=== PATIENT | male | born 1965 | race Caucasian/White ===

== ENCOUNTER 2017-11-13 10:19 | Emergency (ER) | payer BC, OTHER ==
[~2017-11-13] VITALS: Ht 185.4 cm; Wt 87.3 kg
[~2017-11-13 10:19] MED LIST: CEPH500C PO; LRT5 PO
[2017-11-13 10:26] VITALS: TEMP 36.7; Ht 185.4 cm; Wt 87.3 kg
[2017-11-13 10:56] VITALS: O2SAT 99
--- NOTE | 2017-11-13 11:01 | DIAGNOSTIC IMAGING REPORT ---
CHEST ONE VIEW PORTABLE CLINICAL HISTORY: CP dyspnea COMPARISON STUDY: No previous studies for comparison. FINDINGS: The bones soft tissues and hemidiaphragms are normal. The cardiomediastinal silhouette is normal. The lungs are clear. The pulmonary vasculature is normal. IMPRESSION: Negative chest. The above report was generated using voice recognition software. It may contain grammatical, syntax or spelling errors. Electronically signed by: Sabino Coronado M.D. 11/13/2017 10:59 AM Dictated Date/Time: 11/13/2017 10:59 AM
[2017-11-13 11:12] LABS: HEMATOCRIT 44.5 % (42-52); HEMOGLOBIN 15.3 g/dL (14.0-18.0); MEAN CELL VOLUME 89.2 fL (80-100); MEAN CORPUSCULAR HEMOGLOBIN 30.7 pg (25-34); MEAN CORPUSCULAR HGB CONC 34.4 g/dl (32-36); MEAN PLATELET VOLUME 10.9 fL (7.4-10.4); PLATELET COUNT 179 K/uL (130-400); RED CELL DISTRIBUTION WIDTH CV 13.9 % (11.5-14.5); RED CELL DISTRIBUTION WIDTH SD 45.4 fL (36.4-46.3); WHITE BLOOD COUNT 5.82 K/uL (4.8-10.8)
[2017-11-13] MEDS ORDERED: ASPI81TA28 PO (11:14)
[2017-11-13] MEDS ORDERED: LOSA50TA54 PO (11:14)
[2017-11-13 11:38] LABS: ALKALINE PHOSPHATASE 95 U/L (45-117); ALT/SGPT 68 U/L (12-78); BLOOD UREA NITROGEN 11 mg/dl (7-18); CALCIUM 8.8 mg/dl (8.5-10.1); CARBON DIOXIDE 21 mmol/L (21-32); CKMB 1.5 ng/ml (0.5-3.6); GLUCOSE 100 mg/dl (70-99); SODIUM 134 mmol/L (136-145); TOTAL PROTEIN 8.3 gm/dl (6.4-8.2)
[2017-11-13 12:17] LABS: PTT PATIENT 25.8 SECONDS (21.0-31.0)
[2017-11-13 12:20] LABS: POTASSIUM 4.3 mmol/L (3.5-5.1)
[2017-11-13 13:39] VITALS: BP 147/79; PULSE 88; O2SAT 97
--- NOTE | 2017-11-13 18:39 | EMERGENCY ROOM VISIT NOTE ---
History First contact with patient: 11:06 Chief Complaint: CHEST PAIN Stated Complaint: CHEST PAIN Nursing Triage Summary: pt reports hands felt tingly numb 2 days ago and chest palpatations started today denies any pain History of Present Illness The patient is a 52 year old male who presents to the Emergency Room with complaints of left-sided chest discomfort, as well as tingling and occasional numbness of his left fourth and fifth fingers. The patient reports that he started to feel a fluttering sensation in his chest possibly 1.5 hours ago. Her chest pressure or pain. The patient reports that his left hand sensation started to bother him approximately 1 week ago. The patient reports that he works on campus with student housing, and admits that they did do a lot of physical labor in preparation for the beginning of fall. He denies any known injury to the neck or left upper extremity. He denies any personal history of cardiopulmonary disease. He has a [id number] smoking history, as well as diagnosis of hypertension. He denies history of hypercholesterolemia. His father did have a myocardial infarction in his mid 50s. He denies any shortness of breath, back pain or abdominal pain, and denied any discomfort on my exam. Review of Systems HEENT: Denies dizziness, visual problems, hearing loss, tinnitus. Denies difficulty swallowing or oral lesions. PULMONARY: Denies cough, shortness of breath, sputum production or hemoptysis. CARDIOVASCULAR: Denies dyspnea on exertion, orthopnea or peripheral edema. Otherwise see HPI. GASTROINTESTINAL: Denies diarrhea, constipation, nausea, vomiting, or abdominal pain. GENITOURINARY: Denies dysuria, frequency, urgency or nocturia. NEUROLOGIC: Denies history of epilepsy, CVA, TIA or chronic headaches. MUSCULOSKELETAL: Denies history of joint tenderness/swelling. SKIN: Denies rashes or lesions. PSYCHIATRIC: Denies history of depression or mental illness. ENDOCRINE: Denies history of diabetes or thyroid disorders. Past Medical/Surgical History Medical Problems: (1) Finger amputation, traumatic (2) Hypertension (3) Tobacco use disorder Family History FH: coronary artery disease FH: hypertension Social History Smoking Status: Current Every Day Smoker Alcohol Use: occasionally Marital Status: Occupation Status: employed Current/Historical Medications Scheduled Aspirin (Aspirin Ec), 81 MG PO DAILY Losartan Potassium (Cozaar), 50 MG PO DAILY Physical Exam Vital Signs Date Time Temp Pulse Resp B/P (MAP) Pulse Ox O2 Delivery O2 Flow Rate FiO2 11/13/17 13:39 88 18 147/79 97 11/13/17 12:57 76 20 128/78 96 Room Air 11/13/17 12:30 80 20 96 Room Air 11/13/17 12:00 84 19 97 Room Air 11/13/17 11:30 80 19 96 Room Air 11/13/17 11:00 87 18 95 Room Air 11/13/17 10:57 85 18 151/83 95 Room Air 11/13/17 10:56 99 Room Air 11/13/17 10:56 82 20 151/83 97 Room Air 11/13/17 10:55 95 Room Air 11/13/17 10:40 94 11/13/17 10:26 36.7 98 20 156/92 100 Room Air Physical Exam CONSTITUTIONAL: Healthy and well nourished. Alert and oriented X 3 with positive affect. Patient does not appear in any acute distress. HEENT: Normocephalic, atraumatic. Pupils equal, round and reactive. NECK: Full active range of motion without discomfort. Patient has no worsening left upper extremity pain with range of motion of the neck. RESPIRATORY: Clear to auscultation bilaterally with no wheezing, crackles, rhonchi or stridor. CARDIOVASCULAR: Regular rate and rhythm with no murmurs, rubs or gallops. GASTROINTESTINAL: Bowel sounds present in all quadrants. Soft and nontender to palpation. MUSCULOSKELETAL: Examination shows a mild positive compression test at the cubital tunnel with negative Tinel. No focal tenderness over the medial or lateral epicondyles. Resisted flexion of the wrist does cause mild medial elbow discomfort. No obvious joint effusion noted. He has full range of motion of the elbow, forearm and wrist without discomfort. 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 No interosseous atrophy or thenar flattening of the left hand. Capillary refill is less than 2 seconds. INTEGUMENTARY: No rash or other significant dermatologic conditions noted. NEUROLOGIC: Left hand median, radial and ulnar motor and sensory are grossly intact. Medical Decision & Procedures ER Provider Diagnostic Interpretation: My interpretation of an initial ECG shows a sinus tachycardia of [address] elevation or other conduction abnormalities. Repeat ECG at 2 hours showed a normal sinus rhythm of 83 bpm, again with no other acute findings. -- My interpretation of a portable chest x-ray does not show any consolidations, pneumothorax or cardiac prominence. Radiologist report is as follows: CHEST ONE VIEW PORTABLE CLINICAL HISTORY: CP dyspnea COMPARISON STUDY: No previous studies for comparison. FINDINGS: The bones soft tissues and hemidiaphragms are normal. The cardiomediastinal silhouette is normal. The lungs are clear. The pulmonary vasculature is normal. IMPRESSION: Negative chest. Laboratory Results 11/13/17 10:39 11/13/17 10:39 11/13/17 11:53 Test 11/13/17 10:39 11/13/17 10:45 11/13/17 11:53 11/13/17 12:30 Red Blood Count 4.99 M/uL (4.7-6.1) Mean Corpuscular Volume 89.2 fL (80-100) Mean Corpuscular Hemoglobin 30.7 pg (25-34) Mean Corpuscular Hemoglobin Concent 34.4 g/dl (32-36) RDW Standard Deviation 45.4 fL (36.4-46.3) RDW Coefficient of Variation 13.9 % (11.5-14.5) Mean Platelet Volume 10.9 fL (7.4-10.4) Anion Gap 13.0 mmol/L (3-11) Est Creatinine Clear Calc Drug Dose 87.7 ml/min Estimated GFR () 88.4 Estimated GFR (Non- 76.2 BUN/Creatinine Ratio 10.2 (10-20) Calcium Level 8.8 mg/dl (8.5-10.1) Total Bilirubin 0.4 mg/dl (0.2-1) Alanine Aminotransferase (ALT/SGPT) 68 U/L (12-78) Alkaline Phosphatase 95 U/L (45-117) Creatine Kinase MB 1.5 ng/ml (0.5-3.6) Total Protein 8.3 gm/dl (6.4-8.2) Albumin 4.0 gm/dl (3.4-5.0) Globulin 4.3 gm/dl (2.5-4.0) Albumin/Globulin Ratio 0.9 (0.9-2) Creatine Kinase MB Ratio (0-3.0) Prothrombin Time 10.0 SECONDS (9.0-12.0) Prothromb Time International Ratio 1.0 (0.9-1.1) Activated Partial Thromboplast Time 25.8 SECONDS (21.0-31.0) Partial Thromboplastin Ratio 1.0 Aspartate Amino Transf (AST/SGOT) 35 U/L (15-37) Total Creatine Kinase 96 U/L (39-308) Troponin I < 0.015 ng/ml (0-0.045) The above labs were reviewed and were grossly normal, including repeat troponin measured 2 hours apart. ED Course Patient history and physical exam were performed. Nurse's notes were reviewed. Vital signs were reviewed, showing an initial elevated blood pressure 156/92. The patient did not appear in any acute distress. Ankle exam is most consistent with a left ulnar neuritis; however, I did suggest performing additional cardiac workup to rule out cardiopulmonary etiologies. IV access was established, and labs were drawn. ECG and troponin repeated 2 hours apart was normal. Remaining labs were also normal. The patient denied any pain on final reevaluation. I did suggest that the patient follow-up with his PCP for further cardiopulmonary workup, including probable cardiology referral for a stress echo. I did encourage the patient to limit activities and protect his elbow from any blunt trauma. The patient reports that he does prop his elbows on a desk pretty frequently. He also reports sleeping with his left elbow flexed. I did encourage the patient to take a baby aspirin daily until reevaluated by his PCP. Medical Decision Workup today is not suggestive of acute cardiopulmonary etiology. The patient has no shortness of breath to suggest pulmonary embolus. His history and physical exam of the left upper extremity is certainly consistent with an acute ulnar neuritis. Case was discussed with attending physician who agrees with workup and outpatient plan of care. [place] Drug Monitoring Program Search Results: patient reviewed within database Medication Reconcilliation Current Medication List: was personally reviewed by me Blood Pressure Screening Patient's blood pressure: Elevated blood pressure Impression Primary Impression: Left sided chest pain Additional Impression: Neuritis of left ulnar nerve Departure Information Referrals Ha Magana M.D. (PCP) Patient Instructions My [facility] Problem Qualifiers
== END 2017-11-13 13:39 | disposition home or self-care (01) ==
LOC: C.EDB 10:20 → C.EDC 13:39
DX: R07.9 Chest pain, unspecified (principal); G56.22 Lesion of ulnar nerve, left upper limb; F17.210 Nicotine dependence, cigarettes, uncomplicated; I10 Essential (primary) hypertension; Z82.49 Family history of ischemic heart disease and other diseases of the circulatory system; Z79.82 Long term (current) use of aspirin; Z79.899 Other long term (current) drug therapy